=== PATIENT | male | born 1960 | race Caucasian/White ===

== ENCOUNTER → 2022-10-16 | Outpatient (CLI) | payer BC, OTHER ==
[2022-10-16 11:48] VITALS: BP 120/84; PULSE 71; RESP 17; TEMP 98.5
--- NOTE | 2022-10-16 14:25 | P.PAINPG ---
PQRS Measure Charge Sheet Comment: HISTORY OF PRESENT ILLNESS: 62 yr old male w at side as a referral from Dr Kessler presents today w severe and chronic LBP secondary to post laminectomy syndrome for evaluation. Pt states pain level is provoked at 7 /10 in intensity, constant, localized in the lower lumbar spine, stabbing in character without shooting pain. Pain is provoked by standing, bending, walking for periods of 10 min or more. Pain is alleviated by medications (Tyl, Etodolac), topical, heat, ice, PT in 2017 s/p laminectomy, use of a cane for ambulatory assistance, LESIs x3 which were ineffective, reclining and rest. Oswestry axial pain score at 30. PMH: OA, HTN, MDD, DM II, Diabetic neuropathy, BPH, Morbid obesity PSH: Lumbar Laminectomy (2017), Knee Replacement, Shoulder Surgery SH: . Hx of tobacco use and quit 30 yrs ago, Occasional ETOH use, No illicit drug use. [place]. FH: Non contributory All: See list Meds: See list REVIEW OF ORGAN SYSTEMS: CONSTITUTIONAL: No fevers or chills. No recent weight loss. NEUROLOGICAL: + numbness and tingling along the distal extremities. No seizure disorders or headaches. MUSCULOSKELETAL: + pain PSYCHIATRIC: Denies current depression or suicidal thoughts. Physical Examinations : Constitutional : Cooperative , not in acute distress . Neurologic : Cranial nerve II to XII intact. No focal neurological deficits. Psychiatric : alert & oriented x 3. Matching mood & appropriate affect. Judgment & insight intact. Musculoskeletal : Cervical Spine Motor strength in the deltoid and biceps: Normal right side. Normal Left side Motor strength biceps and the wrist extensors: Normal right side . Normal left side Motor strength in the triceps muscle: Normal right side. Normal left side Deep tendon reflexes: Normal at the biceps. Normal at Brachioradialis. Normal at triceps Vertebral body tenderness to deep palpation over Cervical facet loading test: positive b ilaterally Spurling test: positive bilaterally Neck distraction test: positive bilaterally Ivon sign: positive bilaterally Lumbar spine Motor strength lower extremities ,thigh and legs 5/5 Right side , 5/5 Left side Deep tendon reflexes : Normal Knee Jerk. Normal Ankle Jerk Vertebral body tenderness over Barnes Test positive Lumbar facet Loading Test: positive Right / positive Left over BL L4-L5, L5-S1 Range of motion of the lumbar spine Flexion 30 degrees, extension 10 degrees Straight Leg Raise test: Left/ Right positive at degree Wally test: positive right / positive left. Severe tenderness over the Sacroiliac joint on the Right / Left sides Gaenslen test: positive bilaterally Seated flexion test: positive bilaterally. Sacral spine : Severe tenderness over the Sacroiliac joint: right side / left side Range of motion: Flexion of the lumbar spine <60 degrees Range of motion: Extension of the lumbar spine <20 degrees Gaenslen's Test positive Jose G's Test positive Wally test: positive right side / left side Thigh Thrust Test Sacral Thrust Test Imaging: MRI noncontrast of the lumbar spine from 06/15/21 reviewed Assessment/ Plan : LBP s/p post laminectomy syndrome Recommendation of BL MBB L4-L5, L5-S1 #1. May need a series of injections, up until RFA, for optimal pain relief. Risks, benefits of procedure discussed and patient verbalized understanding. Admits to aspirin or anti- coagulant use or medical history of diabetes. Protocol for discontinuation/ continuation of medications mine procedure discussed. Minimal anesthesia provided, if clinically indicated, consisting of Versed and Fentanyl. [place] 7.5/325mg #60 w 1 RF. Use, side effects, adverse reactions and safe storage discussed. Opiate/ narcotic agreement signed today 10/16/22. All questions answered. I have spent greater than 30 minutes on patient care today. Dr Quiñonez was available by phone for the evaluation of this patient. The time was used to review the medical records including relevant urine studies and Prescription history (MAPs), review of the available imaging, evaluation and examination of the patient, coordination of care with the medical staff and if applicable referring physicians, as well as creation of the medical record Controlled Substance Measures - Controlled Substance Measures Is patient prescribed a controlled substance at discharge?: Yes When asked, does pt state using other controlled substances?: Yes If prescribed controlled substance>3 days was MAPS reviewed?: Yes If Rx opioid, was Start Talking consent form obtained?: Yes Was information provided regarding opioid addiction?: Yes
== END ==
LOC: PNWHC3 09:55
PROVIDERS: ATTEND Specialist
DX: M51.37 Other intervertebral disc degeneration, lumbosacral region (principal); M96.1 Postlaminectomy syndrome, not elsewhere classified; M19.90 Unspecified osteoarthritis, unspecified site; I10 Essential (primary) hypertension; F32.9 Major depressive disorder, single episode, unspecified; E11.40 Type 2 diabetes mellitus with diabetic neuropathy, unspecified; E66.01 Morbid (severe) obesity due to excess calories; N40.0 Benign prostatic hyperplasia without lower urinary tract symptoms; Z88.0 Allergy status to penicillin; Z79.84 Long term (current) use of oral hypoglycemic drugs; Z68.41 Body mass index [BMI] 40.0-44.9, adult; Z87.891 Personal history of nicotine dependence
CPT/HCPCS: 99202

== ENCOUNTER 2022-11-14 07:30 | Day surgery (SDC) | payer BC ==
[2022-11-07 11:49] VITALS: BMI 40.1
[~2022-11-14 07:30] MED LIST: LACTATED RINGERS 1,000 ML IV SCH
[2022-11-14 08:08] VITALS: RESP 18; TEMP 97
[2022-11-14 08:15] LABS: Glucose,Whole Blood 140 mg/dL (70-110)
[2022-11-14] MEDS ORDERED: ROPIVACAINE 5 MG/ML 20 ML AMPULE ONE (08:42)
[2022-11-14] MEDS ORDERED: TRIAMCINOLONE ACETONIDE 40 MG/ML 1 ML VIAL ONE (08:42)
--- NOTE | 2022-11-14 08:57 | P.PCN ---
Date of Procedure: 11/14/22 Description of Procedure: Pre- and Post-operative Diagnosis: Lumbar facet arthropathy, and lumbar spondylosis without myelopathy. Procedure: #1 Diagnostic Medial Branch Block at bilateral Lumbar 4/5 and #1 diagnostic dorsal ramus block at Lumbar 5/ sacral ala levels (total 4 levels) Surgeon: Heather Steven Anesthesia: Local: 1% Lidocaine, IV sedation : None Complications: None EBL: None Specimen removed: None Fluoroscopic image: Saved to patient electronic medical records. Indications for Procedure: The patient is well known to pain clinic for his chronic low back pain management. The lumbar facet loading test was positive with a clinical diagnosis of lumbar facet arthropathy. Failed with conservative therapy. Came here for interventional help for better pain relief. Procedure and Findings: The patient was seen and examined. The written informed consent was obtained after explaining the risks, benefits and alternatives of the procedure to the patient. The patient was brought to the procedure room and was placed in the prone position on the operating table table. A pillow was placed under the abdomen to reduce lumbar lordosis. Standard anesthesia monitoring was done through out the procedure. The skin preparation was done with ChloraPrep, and draping was done in usual sterile fashion. Sterile technique was observed throughout the procedure. Under fluoroscopic guidance, right the Lumbar 4, 5 and Sacral ala levels were identified in the AP view. For lumbar L4, and L5 levels the targeting area of superior articular process, and close to the most medial and superior aspect of transverse process identified, marked. 1ml of 1% Lidocaine was used with a 25 gauge needle to achieve adequate local anesthesia of the skin and subcutaneous tissue at each level. A 22 gauge 5 inch spinal needle was placed and advanced targeting area which was close to the most medial and superior aspect of the transverse process. For Lumbar 5/ sacral ala level, fluoroscope was used in the anteroposterior view, and the needle tip was placed at the superior and most medial part of sacral ala close to the superior articular process. A bony contact was obtained and needle tip position was confirmed at anteroposterior view. No paresthesia was noted. A negative aspiration was confirmed. 1 ml solution per level was injected, the block solution containing 5 ml of 0.5% ropivacaine preservative-free solution mixed with 40 MG of Kenalog. The needles were removed intact. Entire procedure repeated on the left side. Lumbar area was cleaned and bandages were applied. Disposition : The patient tolerated the procedure very well. The patient was transferred to the recovery room and remained stable until discharged home. The patient was given detailed discharge instructions for infection, bleeding, and increased pain at the injection site, and was advised to seek immediate medical attention should significant side effects develop. The patient will be scheduled with Pain Clinic within 4 weeks for repeat procedure if it's helpful.
--- NOTE | 2022-11-14 09:11 | FL ---
Fluoroscopy History: BACK PAIN Bilateral lumbar injection with Muppari. 3 images saved. 6 sec fluoro time and .[id number] DAP
[2022-11-14 09:17] VITALS: BP 125/69; PULSE 95
== END 2022-11-14 09:35 | disposition home or self-care (01) ==
LOC: ORPAIN 07:30
DX: M47.816 Spondylosis without myelopathy or radiculopathy, lumbar region (principal); I10 Essential (primary) hypertension; M51.36 Other intervertebral disc degeneration, lumbar region; E11.40 Type 2 diabetes mellitus with diabetic neuropathy, unspecified; R42 Dizziness and giddiness; Z98.890 Other specified postprocedural states; Z90.49 Acquired absence of other specified parts of digestive tract; Z79.899 Other long term (current) drug therapy
CPT/HCPCS: 64493; 64494; J3301; J2795

== ENCOUNTER → 2022-12-11 | Outpatient (CLI) | payer BC ==
[2022-12-11 11:02] VITALS: BP 118/85; PULSE 102; RESP 15; TEMP 98.2
--- NOTE | 2022-12-11 14:49 | P.PAINPG ---
PQRS Measure Charge Sheet Comment: 62 yr old male presents today w severe and chronic LBP secondary to post laminectomy syndrome for evaluation s/p BL MBB L3-L5 #1 and medication refills. Pt states he experienced 50 % pain relief x 12 hrs s/p procedure. Pt states pain level is provoked at 7 /10 in intensity, constant, localized in the lower lumbar spine, stabbing in character without shooting pain. Pain is provoked by standing, bending, walking for periods of 10 min or more. Pain is alleviated by medications, topical, heat, ice, PT in 2017 s/p laminectomy, use of a cane for ambulatory assistance, LESIs x3 which were ineffective, reclining and rest. Oswestry axial pain score at 30. Interventional procedures included BL MBB L3-L5 x1 Medications include [place] 10/325mg #60, Tyl, Etodolac REVIEW OF ORGAN SYSTEMS: CONSTITUTIONAL: No fevers or chills. No recent weight loss. NEUROLOGICAL: + numbness and tingling along the distal extremities. No seizure disorders or headaches. MUSCULOSKELETAL: + pain PSYCHIATRIC: Denies current depression or suicidal thoughts. Physical Examinations : Constitutional : Cooperative , not in acute distress . Neurologic : Cranial nerve II to XII intact. No focal neurological deficits. Psychiatric : alert & oriented x 3. Matching mood & appropriate affect. Judgment & insight intact. Musculoskeletal : Cervical Spine Motor strength in the deltoid and biceps: Normal right side. Normal Left side Motor strength biceps and the wrist extensors: Normal right side . Normal left side Motor strength in the triceps muscle: Normal right side. Normal left side Deep tendon reflexes: Normal at the biceps. Normal at Brachioradialis. Normal at triceps Vertebral body tenderness to deep palpation over Cervical facet loading test: positive bilaterally Spurling test: positive bilaterally Neck distraction test: positive bilaterally Ivon sign: positive bilaterally Lumbar spine Motor strength lower extremities ,thigh and legs 5/5 Right side , 5/5 Left side Deep tendon reflexes : Normal Knee Jerk. Normal Ankle Jerk Vertebral body tenderness over Barnes Test positive Lumbar facet Loading Test: positive Right / positive Left over BL L4-L5, L5-S1 Range of motion of the lumbar spine Flexion 30 degrees, extension 10 degrees Straight Leg Raise test: Left/ Right positive at degree Wally test: positive right / positive left. Severe tenderness over the Sacroiliac joint on the Right / Left sides Gaenslen test: positive bilaterally Seated flexion test: positive bilaterally. Sacral spine : Severe tenderness over the Sacroiliac joint: right side / left side Range of motion: Flexion of the lumbar spine <60 degrees Range of motion: Extension of the lumbar spine <20 degrees Gaenslen's Test positive Jose G's Test positive Wally test: positive right side / lef t side Thigh Thrust Test Sacral Thrust Test Imaging: MRI noncontrast of the lumbar spine from 06/15/21 reviewed Assessment/ Plan : LBP s/p post laminectomy syndrome Recommendation of medication management. May consider SCS trial at a later time. Wallace 10/325mg #60 w 1 RF. Use, side effects, adverse reactions and safe storage discussed. Opiate/ narcotic agreement signed today 10/16/22. All questions answered. I have spent greater than 30 minutes on patient care today. Dr Quiñonez was available by phone for the evaluation of this patient. The time was used to review the medical records including relevant urine studies and Prescription history (MAPs), review of the available imaging, evaluation and examination of the patient, coordination of care with the medical staff and if applicable referring physicians, as well as creation of the medical record PQRS Narrative: Narcotic Agreement Date Signed 10/16/22 Hx Alcohol Use (MH) Yes: 2 beers a year Home Medications: Ambulatory Orders ALPRAZolam [Xanax] 1 mg PO BID 10/16/22 Azelastine/Fluticasone [Azelastin-Flutic 137-50Mcg Spr] 1 spray EA NOSTRIL DAILY 10/16/22 Gabapentin [Neurontin] 300 mg PO TID 10/16/22 Omeprazole [PriLOSEC] 40 mg PO DAILY 10/16/22 Tamsulosin [Flomax] 0.4 mg PO DAILY 10/16/22 Venlafaxine HCl ER [Effexor Xr] 75 mg PO DAILY 10/16/22 Zolpidem [Ambien] 5 mg PO HS PRN 10/16/22 amLODIPine BESYLATE/BENAZEPRIL [amLODIPine BESYLATE/BENAZEPRIL 5-20 mg] 1 capsule PO DAILY 10/16/22 carvediloL [Coreg] 6.25 mg PO BID 10/16/22 metFORMIN HCL 1,000 mg PO DAILY 10/16/22 Meloxicam [Mobic] 7.5 mg PO DAILY 30 Days #30 tab 11/08/22 HYDROcodone/APAP 10-325MG [Wallace 10-325] 1 tab PO BID PRN 30 Days #60 tab 12/11/22 HYDROcodone/APAP 10-325MG [Wall[place] 10-325] 1 tab PO BID PRN 30 Days #60 tab 12/11/22 Controlled Substance Measures - Controlled Substance Measures Is patient prescribed a controlled substance at discharge?: Yes When asked, does pt state using other controlled substances?: Yes If prescribed controlled substance>3 days was MAPS reviewed?: Yes
== END ==
LOC: PNWHC3 09:51
PROVIDERS: ATTEND Specialist
DX: M51.37 Other intervertebral disc degeneration, lumbosacral region (principal); M47.817 Spondylosis without myelopathy or radiculopathy, lumbosacral region; M48.061 Spinal stenosis, lumbar region without neurogenic claudication; M96.1 Postlaminectomy syndrome, not elsewhere classified; Z51.81 Encounter for therapeutic drug level monitoring; Z88.0 Allergy status to penicillin
CPT/HCPCS: 80307; 99212

== ENCOUNTER → 2023-05-09 | Outpatient (CLI) | payer BC ==
--- NOTE | 2023-05-03 09:37 | P.PN ---
Progress Note - Text Progress Note Date: 05/03/23 Pt called stating he has a Headache and would like more [place] 10/325mg. He currently receives a quantity of #60 per month. Documentation received from [employer] [facility] raises awareness pt receives Xanax 1mg #90 per month. Discussed dangers of taking those medications and the importance of spacing medications apart to reduce incidence of reduced level of consciousness or respiratory distress. Will fill Mobic BID #60 which will help potentiate the effects of [place] 10/325mg #60 he is already on. Pt acknowledged understanding.
--- NOTE | 2023-05-07 15:03 | P.PN ---
Progress Note - Text Progress Note Date: 05/07/23 Pt called stating he has a Headache and Mobic does not treat pain. Pt currently receiving [place] 10/325mg #60 per month which he states he's taking "extra" which "helps a tad." Documentation received from [employer] [facility] raises awareness pt receives Xanax 1mg #90 per month. Discussed dangers of taking those medications and the importance of spacing medications apart to reduce incidence of reduced level of consciousness or respiratory distress. Discontinue Mobic BID #60, then add Celebrex 100mg #60 which also helps potentiate the effects of [place] 10/325mg #60 he is already on. Urged pt to stay on current regimen, safely spacing [place] 10/325mg and Xanax 1mg (from another provider). Pt acknowledged understanding.
[2023-05-09] MEDS: KETOROLAC 30 MG/ML 1 ML VIAL IM NR (11:40)
[2023-05-09 11:43] VITALS: BP 131/91; PULSE 77; RESP 16; TEMP 98.2
== END ==
LOC: PNWHC3 09:56
PROVIDERS: ATTEND Specialist
DX: M51.36 Other intervertebral disc degeneration, lumbar region (principal); M96.1 Postlaminectomy syndrome, not elsewhere classified
CPT/HCPCS: 96372; 99211; J1885

== ENCOUNTER → 2023-07-04 | Outpatient (CLI) | payer MEDICARE, BC ==
[2023-07-04 10:12] VITALS: BP 96/68; PULSE 114; RESP 16; TEMP 96.9
--- NOTE | 2023-07-04 13:47 | P.PAINPG ---
PQRS Measure Charge Sheet Comment: A 63 yr old male presents today w severe and chronic LBP secondary to post laminectomy syndrome for medication refills. Pt states he is having itching from [place] and has shown me his arms w multiple scabs. Pt states pain level is provoked at 7 /10 in intensity, constant, localized in the lower lumbar spine, s tabbing in character without shooting pain. Pain is provoked by standing, bending, walking for periods of 10 min or more. Pain is alleviated by medications, topical, heat, ice, PT in 2017 s/p laminectomy, chiropractic treatments monthly w last visit 1 mo ago, use of a cane for ambulatory assistance, LESIs x3 which were ineffective, reclining and rest. Oswestry axial pain score at 30. Discussed additional treatment options such as implantable pain pump, SCS implant and orthopedic surgery, though pt is disinterested in either at this time. Interventional procedures included BL MBB L3-L5 x1 Medications include [place] 10/325mg #60, Celebrex, Tyl, Etodolac, BioFreeze gel REVIEW OF ORGAN SYSTEMS: CONSTITUTIONAL: No fevers or chills. No recent weight loss. NEUROLOGICAL: + numbness and tingling along the distal extremities. No seizure disorders or headaches. MUSCULOSKELETAL: + pain PSYCHIATRIC: Denies current depression or suicidal thoughts. Physical Examinations : Constitutional : Cooperative , not in acute distress . Neurologic : Cranial nerve II to XII intact. No focal neurological deficits. Psychiatric : alert & oriented x 3. Matching mood & appropriate affect. Judgment & insight intact. Musculoskeletal : Cervical Spine Motor strength in the deltoid and biceps: Normal right side. Normal Left side Motor strength biceps and the wrist extensors: Normal right side . Normal left side Motor strength in the triceps muscle: Normal right side. Normal left side Deep tendon reflexes: Normal at the biceps. Normal at Brachioradialis. Normal at triceps Vertebral body tenderness to deep palpation over Cervical facet loading test: positive bilaterally Spurling test: positive bilaterally Neck distraction test: positive bilaterally Ivon sign: positive bilaterally Lumbar spine Motor strength lower extremities ,thigh and legs 5/5 Right side , 5/5 Left side Deep tendon reflexes : Normal Knee Jerk. Normal Ankle Jerk Vertebral body tenderness over Barnes Test positive Lumbar facet Loading Test: positive Right / positive Left over BL L4-L5, L5-S1 Range of motion of the lumbar spine Flexion 30 degrees, extension 10 degrees Straight Leg Raise test: Left/ Right positive at degree Wally test: positive right / positive left. Severe tenderness over the Sacroiliac joint on the Right / Left sides Gaenslen test: positive bilaterally Seated flexion test: positive bilaterally. Sacral spine : Severe tenderness over the Sacroiliac joint: right side / left side Range of motion: Flexion of the lumbar spine <60 degrees Range of motion: Extension of the lumbar spine <20 degrees Gaenslen's Test positive Jose G's Test positive Wally test: positive right side / left side Thigh Thrust Test Sacral Thrust Test Imaging: MRI noncontrast of the lumbar spine from 06/15/21 reviewed Assessment/ Plan : LBP s/p post laminectomy syndrome Recommendation of medication management. Interested in medication management only at this time. Discontinue [place] 10/325mg #60 to replace w Percocet 10/325mg #60 w 1 RF. Continue Celebrex. Use, side effects, adverse reactions and safe storage discussed. Opiate/ narcotic agreement signed 07/04/23. Has not considered SCS trial, pain pump implant or consult w an orthopedic surgeon at this time. All questions answered. I have spent greater than 30 minutes on patient care today. Dr Quiñonez was available by phone for the evaluation of this patient. The time was used to review the medical records including relevant urine studies and Prescription history (MAPs), review of the available imaging, evaluation and examination of the patient, coordination of care with the medical staff and if applicable referring physicians, as well as creation of the medical record - Pain Location Bilateral Lower Back Non-Pharmacological Interventions: Chiropractic Treatment, Heat, Ice, Inactivity, Physical Therapy, Position/Reposition Pharmacological Interventions: PRN Medication, Scheduled Medication, Topical Medication PQRS Narrative: Narcotic Agreement Date Signed 12/11/22 Hx Alcohol Use (MH) Yes: 2 beers a year Home Medications: Ambulatory Orders ALPRAZolam [Xanax] 1 mg PO BID 10/16/22 Azelastine/Fluticasone [Azelastin-Flutic 137-50Mcg Spr] 1 spray EA NOSTRIL DAILY 10/16/22 Gabapentin [Neurontin] 300 mg PO TID 10/16/22 Omeprazole [PriLOSEC] 40 mg PO DAILY 10/16/22 Tamsulosin [Flomax] 0.4 mg PO DAILY 10/16/22 Venlafaxine HCl ER [Effexor Xr] 75 mg PO DAILY 10/16/22 Zolpidem [Ambien] 5 mg PO HS PRN 10/16/22 amLODIPine BESYLATE/BENAZEPRIL [amLODIPine BESYLATE/BENAZEPRIL 5-20 mg] 1 capsule PO DAILY 10/16/22 carvediloL [Coreg] 6.25 mg PO BID 10/16/22 metFORMIN HCL 1,000 mg PO DAILY 10/16/22 Celecoxib [CeleBREX] 100 mg PO BID 30 Days #60 cap 07/04/23 oxyCODONE HCL/ACETAMINOPHEN [Percocet 10-325 mg Tablet] 1 each PO BID PRN 30 Days #60 tab 07/04/23 oxyCODONE HCL/ACETAMINOPHEN [Percocet 10-325 mg] 1 tab PO BID PRN 30 Days #60 tab 07/04/23 Controlled Substance Measures - Controlled Substance Measures Is patient prescribed a controlled substance at discharge?: Yes When asked, does pt state using other controlled substances?: Yes If prescribed controlled substance>3 days was MAPS reviewed?: Yes
== END ==
LOC: PNWHC3 09:15
PROVIDERS: ATTEND Specialist
DX: G89.4 Chronic pain syndrome (principal); M54.16 Radiculopathy, lumbar region; M96.1 Postlaminectomy syndrome, not elsewhere classified; Z88.0 Allergy status to penicillin; Z88.5 Allergy status to narcotic agent
CPT/HCPCS: 99211

== ENCOUNTER → 2023-08-29 | Outpatient (CLI) | payer MEDICARE ==
[2023-08-29 11:13] VITALS: BP 112/74; PULSE 86; RESP 16
--- NOTE | 2023-08-29 15:15 | P.PAINPG ---
PQRS Measure Charge Sheet Comment: A 63 yr old male presents today w severe and chronic LBP secondary to post laminectomy syndrome for medication refills. UE pruritic rash is improving. Pt states pain level is provoked at 8 /10 in intensity, constant, localized in the lower lumbar spine, achy in character without shooting pain. Pain is provoked by standing, bending, walking for periods of 10 min or more. Pain is alleviated by medications, topical, heat, ice, PT in 2017 s/p laminectomy, chiropractic treatments monthly w last visit 1 mo ago, use of a cane for ambulatory assistance, LESIs x3 which were ineffective, reclining and rest. Oswestry axial pain score at 30. Pt states he has appt w Dr Quezada at [facility] on 09/14/23 but needs more pain medication at this time. Narcotic agreement updated. Interventional procedures included BL MBB L3-L5 x1 Medications include [place] 10/325mg #60, Celebrex, Tyl, Etodolac, BioFreeze gel REVIEW OF ORGAN SYSTEMS: CONSTITUTIONAL: No fevers or chills. No recent weight loss. NEUROLOGICAL: + numbness and tingling along the distal extremities. No seizure disorders or headaches. MUSCULOSKELETAL: + pain PSYCHIATRIC: Denies current depression or suicidal thoughts. Physical Examinations : Constitutional : Cooperative , not in acute distress . Neurologic : Cranial nerve II to XII intact. No focal neurological deficits. Psychiatric : alert & oriented x 3. Matching mood & appropriate affect. Judgment & insight intact. Musculoskeletal : Cervical Spine Motor strength in the deltoid and biceps: Normal right side. Normal Left side Motor strength biceps and the wrist extensors: Normal right side . Normal left side Motor strength in the triceps muscle: Normal right side. Normal left side Deep tendon reflexes: Normal at the biceps. Normal at Brachioradialis. Normal at triceps Vertebral body tenderness to deep palpation over Cervical facet loading test: positive bilaterally Spurling test: positive bilaterally Neck distraction test: positive bilaterally Ivon sign: positive bilaterally Lumbar spine Motor strength lower extremities ,thigh and legs 5/5 Right side , 5/5 Left side Deep tendon reflexes : Normal Knee Jerk. Normal Ankle Jerk Vertebral body tenderness over Barnes Test positive Lumbar facet Loading Test: positive Right / positive Left over BL L4-L5, L5-S1 Range of motion of the lumbar spine Flexion 30 degrees, extension 10 degrees Straight Leg Raise test: Left/ Right positive at degree Wally test: positive right / positive left. Severe tenderness over the Sacroiliac joint on the Right / Left sides Gaenslen test: positive bilaterally Seated flexion test: positive bilaterally. Sacral spine : Severe tenderness over the Sacroiliac joint: right side / left side Range of motion: Flexion of the lumbar spine <60 degrees Range of motion: Extension of the lumbar spine <20 degrees Gaenslen's Test positive Jose G's Test positive Wally test: positive right side / left side Thigh Thrust Test Sacral Thrust Test Imaging: MRI noncontrast of the lumbar spine from 06/15/21 reviewed Assessment/ Plan : LBP s/p post laminectomy syndrome Recommendation of medication management. Interested in medication management only at this time. Percocet 10/325mg #90 w 1 RF. UDS collected 08/29/23. Continue Celebrex. Use, side effects, adverse reactions and safe storage discussed. Opiate/ narcotic agreement signed 08/29/23. All questions answered. I have spent greater than 30 minutes on patient care today. Dr Quiñonez was available by phone for the evaluation of this patient. The time was used to review the medical records including relevant urine studies and Prescription history (MAPs), review of the available imaging, evaluation and examination of the patient, coordination of care with the medical staff and if applicable referring physicians, as well as creation of the medical record PQRS Narrative: Narcotic Agreement Date Signed 07/04/23 Hx Alcohol Use (MH) Yes: 2 beers a year Home Medications: Ambulatory Orders ALPRAZolam [Xanax] 1 mg PO BID 10/16/22 Azelastine/Fluticasone [Azelastin-Flutic 137-50Mcg Spr] 1 spray EA NOSTRIL DAILY 10/16/22 Gabapentin [Neurontin] 300 mg PO TID 10/16/22 Omeprazole [PriLOSEC] 40 mg PO DAILY 10/16/22 Tamsulosin [Flomax] 0.4 mg PO DAILY 10/16/22 Venlafaxine HCl ER [Effexor Xr] 75 mg PO DAILY 10/16/22 Zolpidem [Ambien] 5 mg PO HS PRN 10/16/22 amLODIPine BESYLATE/BENAZEPRIL [amLODIPine BESYLATE/BENAZEPRIL 5-20 mg] 1 capsule PO DAILY 10/16/22 carvediloL [Coreg] 6.25 mg PO BID 10/16/22 metFORMIN HCL 1,000 mg PO DAILY 10/16/22 Celecoxib [CeleBREX] 100 mg PO BID 30 Days #60 cap 07/04/23 oxyCODONE HCL/ACETAMINOPHEN [Percocet 10-325 mg Tablet] 1 each PO BID PRN 30 Days #60 tab 07/04/23 oxyCODONE HCL/ACETAMINOPHEN [Percocet 10-325 mg] 1 tab PO BID PRN 30 Days #60 tab 07/04/23 Controlled Substance Measures - Controlled Substance Measures Is patient prescribed a controlled substance at discharge?: Yes When asked, does pt state using other controlled substances?: Yes If prescribed controlled substance>3 days was MAPS reviewed?: Yes If Rx opioid, was Start Talking consent form obtained?: Yes Was information provided regarding opioid addiction?: Yes
== END ==
LOC: PNWHC3 09:14
PROVIDERS: ATTEND Specialist
DX: M96.1 Postlaminectomy syndrome, not elsewhere classified (principal); M54.50 Low back pain, unspecified; Z88.0 Allergy status to penicillin; Z88.5 Allergy status to narcotic agent
CPT/HCPCS: 80307; 99212

== ENCOUNTER → 2023-10-24 | Outpatient (CLI) | payer MEDICARE, BC ==
[2023-10-24 09:21] VITALS: BP 117/84; PULSE 101; RESP 16; TEMP 98.4
--- NOTE | 2023-10-24 14:47 | P.PAINPG ---
PQRS Measure Charge Sheet Comment: A 63 yr old male presents today w severe and chronic LBP secondary to post laminectomy syndrome for medication refills. UE pruritic rash is improving. Pt states pain level is provoked at 6 /10 in intensity, constant, localized in the lower lumbar spine, achy in character without shooting pain. Pain is provoked by standing, bending, walking for periods of 10 min or more. Pain is alleviated by medications, topical, heat, ice, PT in 2017 s/p laminectomy, chiropractic treatments monthly w last visit 1 mo ago, use of a cane for ambulatory assistance, LESIs x3 which were ineffective, reclining and rest. Oswestry axial pain score at 30. Pt states is awaiting SCS trial w Dr Quezada at [facility] at this time. Interventional procedures included BL MBB L3-L5 x1 Medications include [place] 10/325mg #60, Celebrex, Tyl, Etodolac, BioFreeze gel REVIEW OF ORGAN SYSTEMS: CONSTITUTIONAL: No fevers or chills. No recent weight loss. NEUROLOGICAL: + numbness and tingling along the distal extremities. No seizure disorders or headaches. MUSCULOSKELETAL: + pain PSYCHIATRIC: Denies current depression or suicidal thoughts. Physical Examinations : Constitutional : Cooperative , not in acute distress . Neurologic : Cranial nerve II to XII intact. No focal neurological deficits. Psychiatric : alert & oriented x 3. Matching mood & appropriate affect. Judgment & insight intact. Musculoskeletal : Cervical Spine Motor strength in the deltoid and biceps: Normal right side. Normal Left side Motor strength biceps and the wrist extensors: Normal right side . Normal left side Motor strength in the triceps muscle: Normal right side. Normal left side Deep tendon reflexes: Normal at the biceps. Normal at Brachioradialis. Normal at triceps Vertebral body tenderness to deep palpation over Cervical facet loading test: positive bilaterally Spurling test: positive bilaterally Neck distraction test: positive bilaterally Ivon sign: positive bilaterally Lumbar spine Motor strength lower extremities ,thigh and legs 5/5 Right side , 5/5 Left side Deep tendon reflexes : Normal Knee Jerk. Normal Ankle Jerk Vertebral body tenderness over Barnes Test positive Lumbar facet Loading Test: positive Right / positive Left over BL L4-L5, L5-S1 Range of motion of the lumbar spine Flexion 30 degrees, extension 10 degrees Straight Leg Raise test: Left/ Right positive at degree Wally test: positive right / positive left. Severe tenderness over the Sacroiliac joint on the Right / Left sides Gaenslen test: positive bilaterally Seated flexion test: positive bilaterally. Sacral spine : Severe tenderness over the Sacroiliac joint: right side / left side Range of motion: Flexion of the lumbar spine <60 degrees Range of motion: Extension of the lumbar spine <20 degrees Gaenslen's Test positive Jose G's Test positive Wally test: positive right side / left side Thigh Thrust Test Sacral Thrust Test Imaging: MRI noncontrast of the lumbar spine from 06/15/21 reviewed Assessment/ Plan : LBP s/p post laminectomy syndrome Recommendation of medication management. Interested in medication management only at this time. Changed to [place] 10/325mg #120 and Celebrex 100mg #60 w 1 RF. UDS fr 08/29/23 reviewed and consistent. Use, side effects, adverse reactions and safe storage discussed. Opiate/ narcotic agreement signed 10/24/23. All questions answered. I have spent greater than 30 minutes on patient care today. Dr Quiñonez was available by phone for the evaluation of this patient. The time was used to review the medical records including relevant urine studies and Prescription history (MAPs), review of the available imaging, evaluation and examination of the patient, coordination of care with the medical staff and if applicable referring physicians, as well as creation of the medical record - Pain Location Lower Back Non-Pharmacological Interventions: Stretching Pharmacological Interventions: Epidural, Medication, PRN Medication PQRS Narrative: Narcotic Agreement Date Signed 07/04/23 Hx Alcohol Use (MH) Yes: 2 beers a year Home Medications: Ambulatory Orders ALPRAZolam [Xanax] 1 mg PO BID 10/16/22 Azelastine/Fluticasone [Azelastin-Flutic 137-50Mcg Spr] 1 spray EA NOSTRIL DAILY 10/16/22 Gabapentin [Neurontin] 300 mg PO TID 10/16/22 Omeprazole [PriLOSEC] 40 mg PO DAILY 10/16/22 Tamsulosin [Flomax] 0.4 mg PO DAILY 10/16/22 Venlafaxine HCl ER [Effexor Xr] 75 mg PO DAILY 10/16/22 Zolpidem [Ambien] 5 mg PO HS PRN 10/16/22 amLODIPine BESYLATE/BENAZEPRIL [amLODIPine BESYLATE/BENAZEPRIL 5-20 mg] 1 capsule PO DAILY 10/16/22 carvediloL [Coreg] 6.25 mg PO BID 10/16/22 metFORMIN HCL 1,000 mg PO DAILY 10/16/22 Celecoxib [CeleBREX] 100 mg PO BID 30 Days #60 cap 10/24/23 HYDROcodone/APAP 10-325MG [[place] 10-325] 1 tab PO Q6HR PRN 30 Days #120 tab 10/24/23 HYDROcodone/APAP 10-325MG [[place] 10-325] 1 tab PO QID PRN 30 Days #120 tab 10/24/23 Controlled Substance Measures - Controlled Substance Measures Is patient prescribed a controlled substance at discharge?: Yes When asked, does pt state using other controlled substances?: Yes If prescribed controlled substance>3 days was MAPS reviewed?: Yes
== END ==
LOC: PNWHC3 09:01
PROVIDERS: ATTEND Specialist
DX: M47.816 Spondylosis without myelopathy or radiculopathy, lumbar region (principal); M96.1 Postlaminectomy syndrome, not elsewhere classified; Z88.0 Allergy status to penicillin; Z88.5 Allergy status to narcotic agent
CPT/HCPCS: 99211

== ENCOUNTER → 2023-12-13 | Outpatient (CLI) | payer MEDICARE, BC ==
[2023-12-13 11:44] VITALS: BP 109/80; PULSE 87; RESP 20
--- NOTE | 2023-12-13 13:26 | P.PAINPG ---
PQRS Measure Charge Sheet Comment: A 63 yr old male presents today w severe and chronic LBP secondary to post laminectomy syndrome for medication refills. Pt states pain level is provoked at 6 /10 in intensity, constant, localized in the lower lumbar spine, achy in character without shooting pain. Pain is provoked by standing, bending, walking for periods of 10 min or more. Pain is alleviated by medications, topical, heat, ice, PT in 2017 s/p laminectomy, chiropractic treatments monthly w last visit 1 mo ago, use of a cane for ambulatory assistance, LESIs x3 which were ineffective, reclining and rest. As of 09/18/23, Dr Quezada at [facility] will proceed with SCS Trial. Interventional procedures included BL MBB L3-L5 x1 Medications include [place] 10/325mg #60, Celebrex, Tyl, Etodolac, BioFreeze gel REVIEW OF ORGAN SYSTEMS: CONSTITUTIONAL: No fevers or chills. No recent weight loss. NEUROLOGICAL: + numbness and tingling along the distal extremities. No seizure disorders or headaches. MUSCULOSKELETAL: + pain PSYCHIATRIC: Denies current depression or suicidal thoughts. Physical Examinations : Constitutional : Cooperative , not in acute distress . Neurologic : Cranial nerve II to XII intact. No focal neurological deficits. Psychiatric : alert & oriented x 3. Matching mood & appropriate affect. Judgment & insight intact. Musculoskeletal : Cervical Spine Motor strength in the deltoid and biceps: Normal right side. Normal Left side Motor strength biceps and the wrist extensors: Normal right side . Normal left side Motor strength in the triceps muscle: Normal right side. Normal left side Deep tendon reflexes: Normal at the biceps. Normal at Brachioradialis. Normal at triceps Vertebral body tenderness to deep palpation over Cervical facet loading test: positive bilaterally Spurling test: positive bilaterally Neck distraction test: positive bilaterally Ivon sign: positive bilaterally Lumbar spine Motor strength lower extremities ,thigh and legs 5/5 Right side , 5/5 Left side Deep tendon reflexes : Normal Knee Jerk. Normal Ankle Jerk Vertebral body tenderness over Barnes Test positive Lumbar facet Loading Test: positive R ight / positive Left over BL L4-L5, L5-S1 Range of motion of the lumbar spine Flexion 30 degrees, extension 10 degrees Straight Leg Raise test: Left/ Right positive at degree Wally test: positive right / positive left. Severe tenderness over the Sacroiliac joint on the Right / Left sides Gaenslen test: positive bilaterally Seated flexion test: positive bilaterally. Sacral spine : Severe tenderness over the Sacroiliac joint: right side / left side Range of motion: Flexion of the lumbar spine <60 degrees Range of motion: Extension of the lumbar spine <20 degrees Gaenslen's Test positive Jose G's Test positive Wally test: positive right side / left side Thigh Thrust Test Sacral Thrust Test Imaging: MRI noncontrast of the lumbar spine from 06/15/21 reviewed Assessment/ Plan : LBP s/p post laminectomy syndrome Recommendation of medication management. Interested in medication management only at this time. Changed to [place] 10/325mg #120, Celebrex 100mg #60 , will add Robaxin 500mg #90 w 1 RF. UDS fr 08/29/23 reviewed and consistent. Use, side effects, adverse reactions and safe storage discussed. Opiate/ narcotic agreement signed 10/24/23. All questions answered. I have spent greater than 30 minutes on patient care today. Dr Quiñonez was available by phone for the evaluation of this patient. The time was used to review the medical records including relevant urine studies and Prescription history (MAPs), review of the available imaging, evaluation and examination of the patient, coordination of care with the medical staff and if applicable referring physicians, as well as creation of the medical record PQRS Narrative: Narcotic Agreement Date Signed 07/04/23 Hx Alcohol Use (MH) Yes: 2 beers a year Home Medications: Ambulatory Orders ALPRAZolam [Xanax] 1 mg PO BID 10/16/22 Azelastine/Fluticasone [Azelastin-Flutic 137-50Mcg Spr] 1 spray EA NOSTRIL DAILY 10/16/22 Gabapentin [Neurontin] 300 mg PO TID 10/16/22 Omeprazole [PriLOSEC] 40 mg PO DAILY 10/16/22 Tamsulosin [Flomax] 0.4 mg PO DAILY 10/16/22 Venlafaxine HCl ER [Effexor Xr] 75 mg PO DAILY 10/16/22 Zolpidem [Ambien] 5 mg PO HS PRN 10/16/22 amLODIPine BESYLATE/BENAZEPRIL [amLODIPine BESYLATE/BENAZEPRIL 5-20 mg] 1 capsule PO DAILY 10/16/22 carvediloL [Coreg] 6.25 mg PO BID 10/16/22 metFORMIN HCL 1,000 mg PO DAILY 10/16/22 Celecoxib [CeleBREX] 100 mg PO BID 30 Days #60 cap 12/13/23 HYDROcodone/APAP 10-325MG [[place] 10-325] 1 tab PO Q6HR PRN 30 Days #120 tab 12/13/23 HYDROcodone/APAP 10-325MG [[place] 10-325] 1 tab PO QID PRN 21 Days #90 tab 12/13/23 methocarbamoL [Robaxin] 500 mg PO TID PRN 30 Days #90 tab 12/13/23 Controlled Substance Measures - Controlled Substance Measures Is patient prescribed a controlled substance at discharge?: Yes When asked, does pt state using other controlled substances?: Yes If prescribed controlled substance>3 days was MAPS reviewed?: Yes
== END ==
LOC: PNWHC3 11:17
PROVIDERS: ATTEND Specialist
DX: M47.816 Spondylosis without myelopathy or radiculopathy, lumbar region
CPT/HCPCS: 99211

== ENCOUNTER → 2024-02-11 | Outpatient (CLI) | payer MEDICARE, BC ==
[2024-02-11 12:43] VITALS: BP 154/107; PULSE 107; RESP 16; TEMP 96.8
--- NOTE | 2024-02-11 15:09 | P.PAINPG ---
Objective - Vital Signs Vital signs: Vital Signs Temp 96.8 F L 02/11/24 12:39 Pulse 107 H 02/11/24 12:39 Resp 16 02/11/24 12:39 BP 154/107 02/11/24 12:39 Pulse Ox 94 L 02/11/24 12:39 FiO2 PQRS Measure Charge Sheet Mode of Arrival: Ambulatory Comment: A 63 yr old male presents today w severe and chronic LBP secondary to post laminectomy syndrome for medication refills. Pt states pain level is provoked at 6-7 /10 in intensity, constant, localized in the lower lumbar spine, burning in character without shooting pain. Pain is provoked by standing, bending, walking for periods of 10 min or more. Pain is alleviated by medications, topical, heat, ice, PT in 2017 s/p laminectomy, chiropractic treatments monthly w last visit 1 mo ago, use of a cane for ambulatory assistance, LESIs x3 which were ineffective, reclining and rest. Has SCS in place from Dr Quezada at [facility] without incident. Interventional procedures included BL MBB L3-L5 x1 Medications include [place] 10/325mg #60, Celebrex, Tyl, Etodolac, BioFreeze gel REVIEW OF ORGAN SYSTEMS: CONSTITUTIONAL: No fevers or chills. No recent weight loss. NEUROLOGICAL: + numbness and tingling along the distal extremities. No seizure disorders or headaches. MUSCULOSKELETAL: + pain PSYCHIATRIC: Denies current depression or suicidal thoughts. Physical Examinations : Constitutional : Cooperative , not in acute distress . Neurologic : Cranial nerve II to XII intact. No focal neurological deficits. Psychiatric : alert & oriented x 3. Matching mood & appropriate affect. Judgment & insight intact. Musculoskeletal : Cervical Spine Motor strength in the deltoid and maurice ps: Normal right side. Normal Left side Motor strength biceps and the wrist extensors: Normal right side . Normal left side Motor strength in the triceps muscle: Normal right side. Normal left side Deep tendon reflexes: Normal at the biceps. Normal at Brachioradialis. Normal at triceps Vertebral body tenderness to deep palpation over Cervical facet loading test: positive bilaterally Spurling test: positive bilaterally Neck distraction test: positive bilaterally Ivon sign: positive bilaterally Lumbar spine Motor strength lower extremities ,thigh and legs 5/5 Right side , 5/5 Left side Deep tendon reflexes : Normal Knee Jerk. Normal Ankle Jerk Vertebral body tenderness over Barnes Test positive Lumbar facet Loading Test: positive Right / positive Left over BL L4-L5, L5-S1 Range of motion of the lumbar spine Flexion 30 degrees, extension 10 degrees Straight Leg Raise test: Left/ Right positive at degree Wally test: positive right / positive left. Severe tenderness over the Sacroiliac joint on the Right / Left sides Gaenslen test: positive bilaterally Seated flexion test: positive bilaterally. Sacral spine : Severe tenderness over the Sacroiliac joint: right side / left side Range of motion: Flexion of the lumbar spine <60 degrees Range of motion: Extension of the lumbar spine <20 degrees Gaenslen's Test positive Jose G's Test positive Wally test: positive right side / left side Thigh Thrust Test Sacral Thrust Test Imaging: MRI noncontrast of the lumbar spine from 06/15/21 reviewed Assessment/ Plan : LBP s/p post laminectomy syndrome Recommendation of medication management. Interested in medication management only at this time. Changed to [place] 10/325mg #120, Celebrex 100mg #60 , Robaxin 500mg #90 w 1 RF. UDS fr 08/29/23 reviewed and consistent. Use, side effects, adverse reactions and safe storage discussed. Opiate/ narcotic agreement signed 10/24/23. All questions answered. I have spent greater than 30 minutes on patient care today. Dr Quiñonez was available by phone for the evaluation of this patient. The time was used to review the medical records including relevant urine studies and Prescription history (MAPs), review of the available imaging, evaluation and examination of the patient, coordination of care with the medical staff and if applicable referring physicians, as well as creation of the medical record - Pain Location Bilateral Lower Back Non-Pharmacological Interventions: Chiropractic Treatment, Heat, Ice, Position/Reposition Pharmacological Interventions: PRN Medication, Scheduled Medication, Topical Medication PQRS Narrative: Narcotic Agreement Date Signed 07/04/23 Blood Pressure 154/107 Pain Intensity [Bilateral 7 Lower Back] Scale Used Numeric (1 - 10) Hx Alcohol Use (MH) Yes: 2 beers a year Home Medications: Ambulatory Orders ALPRAZolam [Xanax] 1 mg PO BID 10/16/22 Azelastine/Fluticasone [Azelastin-Flutic 137-50Mcg Spr] 1 spray EA NOSTRIL DAILY 10/16/22 Gabapentin [Neurontin] 300 mg PO TID 10/16/22 Omeprazole [PriLOSEC] 40 mg PO DAILY 10/16/22 Tamsulosin [Flomax] 0.4 mg PO DAILY 10/16/22 Venlafaxine HCl ER [Effexor Xr] 75 mg PO DAILY 10/16/22 Zolpidem [Ambien] 5 mg PO HS PRN 10/16/22 amLODIPine BESYLATE/BENAZEPRIL [amLODIPine BESYLATE/BENAZEPRIL 5-20 mg] 1 capsule PO DAILY 10/16/22 carvediloL [Coreg] 6.25 mg PO BID 10/16/22 metFORMIN HCL 1,000 mg PO DAILY 10/16/22 Celecoxib [CeleBREX] 100 mg PO BID 30 Days #60 cap 02/11/24 HYDROcodone/APAP 10-325MG [[place] 10-325] 1 tab PO Q6HR PRN 30 Days #120 tab 02/11/24 HYDROcodone/APAP 10-325MG [[place] 10-325] 1 tab PO QID PRN 30 Days #120 tab 02/11/24 methocarbamoL [Robaxin] 500 mg PO TID PRN 30 Days #90 tab 02/11/24 Controlled Substance Measures - Controlled Substance Measures Is patient prescribed a controlled substance at discharge?: Yes When asked, does pt state using other controlled substances?: Yes If prescribed controlled substance>3 days was MAPS reviewed?: Yes
== END ==
LOC: PNWHC3 12:24
PROVIDERS: ATTEND Specialist
DX: M47.816 Spondylosis without myelopathy or radiculopathy, lumbar region (principal); M96.1 Postlaminectomy syndrome, not elsewhere classified; Z88.0 Allergy status to penicillin; Z88.5 Allergy status to narcotic agent
CPT/HCPCS: 99211

== ENCOUNTER → 2024-04-21 | Outpatient (CLI) | payer MEDICARE, BC ==
[2024-04-21 13:24] VITALS: BP 142/91; PULSE 71; RESP 18; TEMP 98.6
--- NOTE | 2024-04-21 15:22 | P.PAINPG ---
PQRS Measure Charge Sheet Comment: A 63 yr old male presents today w severe and chronic LBP secondary to post laminectomy syndrome for medication refills. Pt states pain level is provoked at 6-7 /10 in intensity, constant, localized in the lower lumbar spine, burning in character without shooting pain. Pain is provoked by standing, bending, walking for periods of 10 min or more. Pain is alleviated by medications, topical, heat, ice, PT in 2017 s/p laminectomy, chiropractic treatments monthly w last visit 1 mo ago, use of a cane for ambulatory assistance, LESIs x3 which were ineffective, reclining and rest. States SCS in place from Dr Quezada at [facility] has disconnected from the battery. Admits he will follow up w Dr Quezada to explore SCS replacement. Interventional procedures included BL MBB L3-L5 x1 Medications include [place] 10/325mg #60, Celebrex, Tyl, Etodolac, BioFreeze gel REVIEW OF ORGAN SYSTEMS: CONSTITUTIONAL: No fevers or chills. No recent weight loss. NEUROLOGICAL: + numbness and tingling along the distal extremities. No seizure disorders or headaches. MUSCULOSKELETAL: + pain PSYCHIATRIC: Denies current depression or suicidal thoughts. Physical Examinations : Constitutional : Cooperative , not in acute distress . Neurologic : Cranial nerve II to XII intact. No focal neurological deficits. Psychiatric : alert & oriented x 3. Matching mood & appropriate affect. Judgment & insight intact. Musculoskeletal : Cervical Spine Motor strength in the deltoid and biceps: Normal right side. Normal Left side Motor strength biceps and the wrist extensors: Normal right side . Normal left side Motor strength in the triceps muscle: Normal right side. Normal left side Deep tendon reflexes: Normal at the biceps. Normal at Brachioradialis. Normal at triceps Vertebral body tenderness to deep palpation over Cervical facet loading test: positive bilaterally Spurling test: positive bilaterally Neck distraction test: positive bilaterally Ivon sign: positive bilaterally Lumbar spine Motor strength lower extremities ,thigh and legs 5/5 Right side , 5/5 Left side Deep tendon reflexes : Normal Knee Jerk. Normal Ankle Jerk Vertebral body tenderness over Barnes Test positive Lumbar facet Loading Test: positive Right / positive Left over BL L4-L5, L5-S1 Range of motion of the lumbar spine Flexion 30 degrees, extension 10 degrees Straight Leg Raise test: Left/ Right positive at degree Wally test: positive right / positive left. Severe tenderness over the Sacroiliac joint on the Right / Left sides Gaenslen test: positive bilaterally Seated flexion test: positive bilaterally. Sacral spine : Severe tenderness over the Sacroiliac joint: right side / left side Range of motion: Flexion of the lumbar spine <60 degrees Range of motion: Extension of the lumbar spine <20 degrees Gaenslen's Test positive Jose G's Test positive Wally test: positive right side / left side Thigh Thrust Test Sacral Thrust Test Imaging: MRI noncontrast of the lumbar spine from 06/15/21 reviewed Assessment/ Plan : LBP s/p post laminectomy syndrome Recommendation of medication management. Interested in medication management only at this time. Changed to Percocet 10/325mg #90. Opiate/ narcotic agreement signed 04/21/24. UDS fr 08/29/23 reviewed and consistent. Use, side effects, adverse reactions and safe storage discussed. All questions answered. I have spent greater than 30 minutes on patient care today. Dr Quiñonez was available by phone for the evaluation of this patient. The time was used to review the medical records including relevant urine studies and Prescription history (MAPs), review of the available imaging, evaluation and examination of the patient, coordination of care with the medical staff and if applicable referring physicians, as well as creation of the medical record - Pain Location Lower Back Non-Pharmacological Interventions: Sitting PQRS Narrative: Narcotic Agreement Date Signed 07/04/23 Hx Alcohol Use (MH) Yes: 2 beers a year Home Medications: Ambulatory Orders ALPRAZolam [Xanax] 1 mg PO BID 10/16/22 Azelastine/Fluticasone [Azelastin-Flutic 137-50Mcg Spr] 1 spray EA NOSTRIL DAILY 10/16/22 Gabapentin [Neurontin] 300 mg PO TID 10/16/22 Omeprazole [PriLOSEC] 40 mg PO DAILY 10/16/22 Tamsulosin [Flomax] 0.4 mg PO DAILY 10/16/22 Venlafaxine HCl ER [Effexor Xr] 75 mg PO DAILY 10/16/22 Zolpidem [Ambien] 5 mg PO HS PRN 10/16/22 amLODIPine BESYLATE/BENAZEPRIL [amLODIPine BESYLATE/BENAZEPRIL 5-20 mg] 1 capsule PO DAILY 10/16/22 carvediloL [Coreg] 6.25 mg PO BID 10/16/22 metFORMIN HCL 1,000 mg PO DAILY 10/16/22 Celecoxib [CeleBREX] 100 mg PO BID 30 Days #60 cap 02/11/24 methocarbamoL [Robaxin] 500 mg PO TID PRN 30 Days #90 tab 02/11/24 oxyCODONE HCL/ACETAMINOPHEN [Percocet 10-325 mg Tablet] 1 each PO TID PRN 30 Days #90 tab 04/21/24 oxyCODONE HCL/ACETAMINOPHEN [Percocet 10-325 mg] 1 tab PO TID PRN 30 Days #90 tab 04/21/24 Controlled Substance Measures - Controlled Substance Measures Is patient prescribed a controlled substance at discharge?: Yes When asked, does pt state using other controlled substances?: Yes If prescribed controlled substance>3 days was MAPS reviewed?: Yes If Rx opioid, was Start Talking consent form obtained?: Yes Was information provided regarding opioid addiction?: Yes
== END ==
LOC: PNWHC3 12:26
PROVIDERS: ATTEND Specialist
DX: M96.1 Postlaminectomy syndrome, not elsewhere classified (principal); Z88.5 Allergy status to narcotic agent; Z88.0 Allergy status to penicillin
CPT/HCPCS: 99211

== ENCOUNTER → 2024-06-09 | Outpatient (CLI) | payer MEDICARE, BC ==
[2024-06-09 14:04] VITALS: BP 100/72; PULSE 82; RESP 19; TEMP 96.9
--- NOTE | 2024-06-09 15:19 | P.PAINPG ---
PQRS Measure Charge Sheet Comment: A 63 yr old male w at side presents today w severe and chronic LBP secondary to post laminectomy syndrome for medication refills. Pt states pain level is provoked at 6-7 /10 in intensity, constant, localized in the lower lumbar spine, burning in character without shooting pain. Pain is provoked by standing, bending, walking for periods of 10 min or more. Pain is alleviated by medications, topical, heat, ice, PT in 2017 s/p laminectomy, chiropractic treatments monthly w last visit 1 mo ago, use of a cane for ambulatory assistance, LESIs x3 which were ineffective, reclining and rest. Discussed high MMEs betw opiates and benzodiazepines. Pt states that Dr Moore will no longer fill Ambien for him. Pt requested Tramadol to take 6 times a day or Dilaudid to take twice a day. States SCS in place from Dr Quezada at [facility] has disconnected from the battery. Yet to follow up w Dr Quezada to explore SCS replacement. Interventional procedures included BL MBB L3-L5 x1 Medications include [place] 10/325mg #60, Celebrex, Tyl, Etodolac, BioFreeze gel REVIEW OF ORGAN SYSTEMS: CONSTITUTIONAL: No fevers or chills. No recent weight loss. NEUROLOGICAL: + numbness and tingling along the distal extremities. No seizure disorders or headaches. MUSCULOSKELETAL: + pain PSYCHIATRIC: Denies current depression or suicidal thoughts. Physical Examinations : Constitutional : Cooperative , not in acute distress . Neurologic : Cranial nerve II to XII intact. No focal neurological deficits. Psychiatric : alert & oriented x 3. Matching mood & appropriate affect. Judgment & insight intact. Musculoskeletal : Cervical Spine Motor strength in the deltoid and biceps: Normal right side. Normal Left side Motor strength biceps and the wrist extensors: Normal right side . Normal left side Motor strength in the triceps muscle: Normal right side. Normal left side Deep tendon reflexes: Normal at the biceps. Normal at Brachioradialis. Normal at triceps Vertebral body tenderness to deep palpation over Cervical facet loading test: positive bilaterally Spurling test: positive bilaterally Neck distraction test: positive bilaterally Ivon sign: positive bilaterally Lumbar spine Motor strength lower extremities ,thigh and legs 5/5 Right side , 5/5 Left side Deep tendon reflexes : Normal Knee Jerk. Normal Ankle Jerk Vertebral body tenderness over Barnes Test positive Lumbar facet Loading Test: positive Right / positive Left over BL L4-L5, L5-S1 Range of motion of the lumbar spine Flexion 30 degrees, extension 10 degrees Straight Leg Raise test: Left/ Right positive at degree Wally test: positive right / positive left. Severe tenderness over the Sacroiliac joint on the Right / Left sides Gaenslen test: positive bilaterally Seated flexion test: positive bilaterally. Sacral spine : Severe tenderness over the Sacroiliac joint: right side / left side Range of motion: Flexion of the lumbar spine <60 degrees Range of motion: Extension of the lumbar spine <20 degrees Gaenslen's Test positive Jsoe G's Test positive Wally test: positive right side / left side Thigh Thrust Test Sacral Thrust Test Imaging: MRI non contrast of the lumbar spine from 06/15/21 reviewed Assessment/ Plan : LBP s/p post laminectomy syndrome Recommendation of medication management. Interested in medication management only at this time. Refill Percocet 10/325mg #90. Opiate/ narcotic agreement signed 04/21/24. UDS fr 08/29/23 reviewed and consistent. Use, side effects, adverse reactions and safe storage discussed. All questions answered. I have spent greater than 30 minutes on patient care today. Dr Quiñonez was available by phone for the evaluation of this patient. The time was used to review the medical records including relevant urine studies and Prescription history (MAPs), review of the available imaging, evaluation and examination of the patient, coordination of care with the medical staff and if applicable referring physicians, as well as creation of the medical record - Pain Location Lower Back Pharmacological Interventions: PRN Medication PQRS Narrative: Narcotic Agreement Date Signed 07/04/23 Hx Alcohol Use (MH) Yes: 2 beers a year Home Medications: Ambulatory Orders ALPRAZolam [Xanax] 1 mg PO BID 10/16/22 Azelastine/Fluticasone [Azelastin-Flutic 137-50Mcg Spr] 1 spray EA NOSTRIL DAILY 10/16/22 Gabapentin [Neurontin] 300 mg PO TID 10/16/22 Omeprazole [PriLOSEC] 40 mg PO DAILY 10/16/22 Tamsulosin [Flomax] 0.4 mg PO DAILY 10/16/22 Venlafaxine HCl ER [Effexor Xr] 75 mg PO DAILY 10/16/22 Zolpidem [Ambien] 5 mg PO HS PRN 10/16/22 amLODIPine BESYLATE/BENAZEPRIL [amLODIPine BESYLATE/BENAZEPRIL 5-20 mg] 1 capsule PO DAILY 10/16/22 carvediloL [Coreg] 6.25 mg PO BID 10/16/22 metFORMIN HCL 1,000 mg PO DAILY 10/16/22 Celecoxib [CeleBREX] 100 mg PO BID 30 Days #60 cap 02/11/24 methocarbamoL [Robaxin] 500 mg PO TID PRN 30 Days #90 tab 02/11/24 oxyCODONE HCL/ACETAMINOPHEN [Percocet 10-325 mg] 1 each PO TID PRN 30 Days #90 tab 06/09/24 oxyCODONE HCL/ACETAMINOPHEN [Percocet 10-325 mg] 1 tab PO TID PRN 30 Days #90 tab 06/09/24 oxyCODONE HCL/ACETAMINOPHEN [Percocet 10-325 mg] 1 tab PO TID PRN 30 Days #90 tab 06/09/24 Controlled Substance Measures - Controlled Substance Measures Is patient prescribed a controlled substance at discharge?: Yes When asked, does pt state using other controlled substances?: Yes If prescribed controlled substance>3 days was MAPS reviewed?: Yes If Rx opioid, was Start Talking consent form obtained?: Yes Was information provided regarding opioid addiction?: Yes
== END ==
LOC: PNWHC3 13:41
PROVIDERS: ATTEND Specialist
DX: M96.1 Postlaminectomy syndrome, not elsewhere classified (principal); Z88.0 Allergy status to penicillin; Z88.5 Allergy status to narcotic agent
CPT/HCPCS: 99211

== ENCOUNTER → 2024-09-01 | Outpatient (CLI) | payer MEDICARE, BC ==
[2024-09-01 10:03] VITALS: BP 128/88; PULSE 85; RESP 19
--- NOTE | 2024-09-03 07:31 | P.PAINPG ---
PQRS Measure Charge Sheet Comment: A 64 yr old male w at side presents today w severe and chronic LBP secondary to post laminectomy syndrome for medication refills. Pt states pain level is provoked at 8 /10 in intensity, constant, localized in the lower lumbar spine, burning in character without shooting pain. Pain is provoked by standin g, bending, walking for periods of 10 min or more. Pain is alleviated by medications, topical, heat, ice, PT in 2016 s/p laminectomy, chiropractic treatments monthly w last visit 1 mo ago, use of a cane for ambulatory assistance, LESIs x3 which were ineffective, reclining and rest. In May 2024, documentation from [facility] received stating Pt is at greater risk for potentially fatal opioid overdose due to concurrent opioid and benzodiazepine use. Discussed this issue at his last visit, however pt heavily pushed back on any reduction of strength, dosage or quantity of medication. Narcan is at hand and is aware of the signs/ symptoms for its use. Discussed high MMEs betw opiates and benzodiazepines. Dr Moore no longer fills Ambien. Will cut Percocet in half and take more frequently in addition to Ibu and Robaxin. States SCS in place from Dr Quezada at [facility] has disconnected from the battery. Yet to follow up w Dr Quezada to explore SCS replacement. Interventional procedures included BL MBB L3-L5 x1 Medications include [place] 10/325mg #60, Celebrex, Tyl, Etodolac, BioFreeze gel REVIEW OF ORGAN SYSTEMS: CONSTITUTIONAL: No fevers or chills. No recent weight loss. NEUROLOGICAL: + numbness and tingling along the distal extremities. No seizure disorders or headaches. MUSCULOSKELETAL: + pain PSYCHIATRIC: Denies current depression or suicidal thoughts. Physical Examinations : Constitutional : Cooperative , not in acute distress . Neurologic : Cranial nerve II to XII intact. No focal n eurological deficits. Psychiatric : alert & oriented x 3. Matching mood & appropriate affect. Judgment & insight intact. Musculoskeletal : Cervical Spine Motor strength in the deltoid and biceps: Normal right side. Normal Left side Motor strength biceps and the wrist extensors: Normal right side . Normal left side Motor strength in the triceps muscle: Normal right side. Normal left side Deep tendon reflexes: Normal at the biceps. Normal at Brachioradialis. Normal at triceps Vertebral body tenderness to deep p alpation over Cervical facet loading test: positive bilaterally Spurling test: positive bilaterally Neck distraction test: positive bilaterally Ivon sign: positive bilaterally Lumbar spine Motor strength lower extremities ,thigh and legs 5/5 Right side , 5/5 Left side Deep tendon reflexes : Normal Knee Jerk. Normal Ankle Jerk Vertebral body tenderness over Barnes Test positive Lumbar facet Loading Test: positive Right / positive Left over BL L4-L5, L5-S1 Range of motion of the lumbar spine Flexion 30 degrees, extension 10 degrees Straight Leg Raise test: Left/ Right positive at degree Wally test: positive right / positive left. Severe tenderness over the Sacroiliac joint on the Right / Left sides Gaenslen test: positive bilaterally Seated flexion test: positive bilaterally. Sacral spine : Severe tenderness over the Sacroiliac joint: right side / left side Range of motion: Flexion of the lumbar spine <60 degrees Range of motion: Extension of the lumbar spine <20 degrees Gaenslen's Test positive Jose G's Test positive Wally test: positive right side / left side Thigh Thrust Test Sacral Thrust Test Imaging: MRI non contrast of the lumbar spine from 06/15/21 reviewed Assessment/ Plan : LBP s/p post laminectomy syndrome Recommendation of medication management. Interested in medication management only at this time. Percocet 10/325mg #90, Robaxin 500mg #90, Ibu 600mg #90 w 2 RF. Opiate/ narcotic agreement signed 04/21/24. UDS fr 08/29/23 reviewed and consistent. Use, side effects, adverse reactions and safe storage discussed. All questions answered. I have spent greater than 30 minutes on patient care today. Dr Quiñonez was available by phone for the evaluation of this patient. The time was used to re view the medical records including relevant urine studies and Prescription history (MAPs), review of the available imaging, evaluation and examination of the patient, coordination of care with the medical staff and if applicable referring physicians, as well as creation of the medical record - Pain Location Lower Back Non-Pharmacological Interventions: Heat, Ice Pharmacological Interventions: Medication, Topical Medication PQRS Narrative: Narcotic Agreement Date Signed 07/04/23 Hx Alcohol Use (MH) Yes: 2 beers a year Home Medications: Ambulatory Orders ALPRAZolam [Xanax] 1 mg PO BID 10/16/22 Azelastine/Fluticasone [Azelastin-Flutic 137-50Mcg [facility]] 1 spray EA NOSTRIL DAILY 10/16/22 Gabapentin [Neurontin] 300 mg PO TID 10/16/22 Omeprazole [PriLOSEC] 40 mg PO DAILY 10/16/22 Tamsulosin [Flomax] 0.4 mg PO DAILY 10/16/22 Venlafaxine HCl ER [Effexor Xr] 75 mg PO DAILY 10/16/22 amLODIPine BESYLATE/BENAZEPRIL [amLODIPine BESYLATE/BENAZEPRIL 5-20 mg] 1 capsule PO DAILY 10/16/22 carvediloL [Coreg] 6.25 mg PO BID 10/16/22 metFORMIN HCL 1,000 mg PO DAILY 10/16/22 Ibuprofen 600 mg PO Q8H PRN 30 Days #90 tab 09/01/24 methocarbamoL [Robaxin] 500 mg PO TID PRN 30 Days #90 tab 09/01/24 oxyCODONE HCL/ACETAMINOPHEN [Percocet 10-325 mg] 1 each PO TID PRN 30 Days #90 tab 09/01/24 oxyCODONE HCL/ACETAMINOPHEN [Percocet 10-325 mg] 1 tab PO TID PRN 30 Days #90 tab 09/01/24 oxyCODONE HCL/ACETAMINOPHEN [Percocet 10-325 mg] 1 tab PO TID PRN 30 Days #90 tab 09/01/24 Controlled Substance Measures - Controlled Substance Measures Is patient prescribed a controlled substance at discharge?: Yes When asked, does pt state using other controlled substances?: Yes If prescribed controlled substance>3 days was MAPS reviewed?: Yes
== END ==
LOC: PNWHC3 09:31
PROVIDERS: ATTEND Specialist
DX: M54.50 Low back pain, unspecified (principal); M96.1 Postlaminectomy syndrome, not elsewhere classified; Z88.0 Allergy status to penicillin; Z88.5 Allergy status to narcotic agent
CPT/HCPCS: 99212